=== PATIENT | female | born 1950 | race Asian ===

== ENCOUNTER 2018-07-23 01:45 | Emergency (ER) | payer OTHER ==
[~2018-07-23] VITALS: Ht 162.6 cm; Wt 77.1 kg
[~2018-07-23 01:45] MED LIST: NOR10 PO; THY30 PO
[2018-07-23 01:50] VITALS: Ht 162.6 cm; Wt 77.1 kg
[2018-07-23 03:49] VITALS: BP 133/102
== END 2018-07-23 03:49 | disposition home or self-care (01) ==
LOC: ED 01:45
DX: S00.03XA Contusion of scalp, initial encounter (principal); I10 Essential (primary) hypertension; W18.09XA Striking against other object with subsequent fall, initial encounter; Y93.89 Activity, other specified; Y92.89 Other specified places as the place of occurrence of the external cause; Y99.8 Other external cause status